=== PATIENT | male | born 1950 | race Caucasian/White ===

== ENCOUNTER → 2017-03-11 | Outpatient (CLI) | payer OTHER ==
[~2017-03-11] MED LIST: ATOR-26 PO; CYCL10TA6 PO; FLNIN/ NAE; GLY/5 PO; LSN20 PO; MELO7.5T5 PO; METF-384 PO; RANI150T2 PO; TOLT1CAP6 PO; TRAM-10 PO; ZPAK PO
--- NOTE | 2017-03-11 13:49 | DIAGNOSTIC IMAGING REPORT ---
VIDEO SWALLOW HISTORY: DYSPHAGIA TECHNIQUE: Video fluoroscopic evaluation of swallowing was performed in the AP and lateral projections by the speech pathology staff. The patient is fed nectar-thick and thin liquid barium, a barium coated wafer, and barium pudding. FLUOROSCOPY TIME: 1.8 minutes. A cine loop submitted. COMPARISON STUDY: Barium swallow 12/08/2014. FINDINGS: There is normal hyoid excursion and epiglottic deflection. No significant penetration or aspiration identified. Swallowing function is within normal limits. Questionable anterior filling defect at the proximal esophagus favors a venous plexus rather than a cervical web or lesion. This does not persist throughout the examination. IMPRESSION: 1. No aspiration identified. 2. Please see the speech pathologist report for detailed findings and recommendations. Electronically signed by: Derrick Agarwal M.D. 03/11/2017 1:47 PM Dictated Date/Time: 03/11/2017 1:42 PM
--- NOTE | 2017-03-11 15:51 | SWALLOWING EVALUATION ---
HISTORY: This 66 year old man was referred for a video swallow study at [facility] in order to rule out aspiration and identify the safest consistencies for optimal oral intake. The patient is reporting that he constantly feels as though he has to clear his throat while he eats. He feels as though his voice has become raspier due to this as well. PMH is significant for: DMII with neuropathies, hyperlipidemia, HTN, tobacco use, GERD. He has also had frequent ED visits for SOB, coughing, and dysphagia. The patient participated in a previous Barium Swallow study in 2015, that was limited due to claustrophobia, but distal esophageal narrowing was suspected. Current diet is regular. PROCEDURE: The patient was seen in the Radiology Department of [facility] for the VFSS. Cursory examination of the oral cavity revealed natural dentition in fair condition, scattered missing. Movement of the articulators was wnl. The patient was seated upright in the [facility] videofluoroscopy imaging chair and was viewed in both the Anterior-Posterior (A-P) and Lateral planes. Vocal quality was mildly raspy, low volume of speech (patient states this is normal). Vocal phonation was deferred due to positioning constraints. In the lateral plane, the patient was given the following boluses: 1 tsp. thin liquid barium x 2, single swallow thin liquid barium self-presented from a cup, serial swallows of thin liquid barium self-presented via straw, 1 tsp. nectar-thick liquid barium, 1 cup sips nectar thick liquid self-presented from the cup, 1 tsp. barium pudding, and 1 tsp. barium pudding. The patient was then repositioned into the A-P plane and given the following boluses: 1 tsp. nectar thick barium liquid and 1 tsp. barium pudding. RESULTS: Oral Stage: Lip closure was adequate as there was no anterior loss. The patient was able to maintain a cohesive liquid bolus upon command without lateral or posterior escape. Mastication and lingual motion for bolus transport were slow. There was retention lining the tongue and palate after the swallow. The initiation of the pharyngeal swallow was delayed, and triggered when the bolus head reached the valleculae. Pharyngeal Stage: Soft palate elevation was complete. Laryngeal elevation revealed complete superior movement of the thyroid cartilage with complete approximation of the arytenoids to the epiglottic base. Anterior hyoid excursion and epiglottic deflection were also complete. Laryngeal vestibular closure was complete. The pharyngeal stripping wave was present and complete. Pharyngeal contraction was also complete. The opening to the pharyngoesophageal segment (PES) was mildly reduced with partial distention and duration of the opening. Tongue base retraction revealed mildly reduced contact of the tongue base to the pharyngeal wall during the swallow. There was trace retention located in the valleculae and pyriforms after the swallow. There was no evidence of laryngeal penetration or aspiration during this study. There were only trace amounts of retention in the pharynx after the swallow was complete as well. Of note, the patient had episodes of light throat clearing throughout the entire study, but this was not due to aspiration. Esophageal stage: There was complete esophageal clearance. SUMMARY/RECOMMENDATIONS: This patient presents with normal jayden-pharyngeal swallowing mechanics. While not noted during this study, he has a PMH of esophageal dysfunction (GERD). It is suspected the patient's throat clearing may be due to GERD. The following is recommended: 1. Regular consistency diet. 2. GERD precautions. Fully upright for all p.o. intake and for 30-60 minutes after meals. HOB elevated to 30 degrees at all times to include while asleep. 3. Consider a consultation with an ENT as appropriate should the patient continue to evidence raspy vocal quality. A summary of the results and recommendations was discussed with the patient immediately following the study with verbal understanding. Thank you for referral of this patient. Please contact me at if any additional information is needed.
== END | disposition home or self-care (01) ==
LOC: C.RAD 12:55
PROVIDERS: ATTEND Internal Medicine
DX: R13.10 Dysphagia, unspecified (principal); E78.5 Hyperlipidemia, unspecified; I10 Essential (primary) hypertension; F17.210 Nicotine dependence, cigarettes, uncomplicated; R49.0 Dysphonia; E11.9 Type 2 diabetes mellitus without complications

== ENCOUNTER 2018-01-05 17:51 | Emergency (ER) | payer OTHER ==
[~2018-01-05] VITALS: Ht 172.7 cm; Wt 97.6 kg
[~2018-01-05 17:51] MED LIST changes: -ATOR-26 PO; -LSN20 PO; -MELO7.5T5 PO; -RANI150T2 PO; -TOLT1CAP6 PO
[2018-01-05 17:58] VITALS: TEMP 37; Ht 172.7 cm; Wt 97.6 kg
[2018-01-05] MEDS ORDERED: ONDANSETRON INJ 2 MG/ML 2 ML VIAL IV STA (18:05)
[2018-01-05] MEDS ORDERED: OPTIRAY 320 IV PRN (18:15)
[2018-01-05] MEDS ORDERED: MoRPHine SULFATE 4 MG/ML 1 ML CARP\\VIAL IV PRN (18:15)
--- NOTE | 2018-01-05 18:21 | EMERGENCY ROOM VISIT NOTE ---
History Report prepared by Rosalba: Thomas Cast Under the Supervision of: Dr. Uday Castro D.O. First contact with patient: 17:57 Chief Complaint: NECK PAIN Stated Complaint: NECK & L SHOULDER PAIN History of Present Illness The patient is a 67 year old male who presents to the Emergency Room with complaints of a worsening pain to the left side of his neck beginning 5 days ago. He currently rates his discomfort a 10/10 in severity. The patient states his symptoms started five days ago with a stiff neck. He reports his symptoms radiate from his left ear to his left shoulder and across his chest to his right shoulder. The patient notes he has had a history of these symptoms before , and heat typically alleviates his discomfort. He states he tried to use heat and propping himself up, and this time it did not work. The patient reports he sleeps on his side with his left arm under the pillow. He notes he woke up and tried to pivot on his left elbow, and this movement increased his pain. The patient states he has a history of carpal tunnel and a snapped finger in both his arms, and he has surgery in three days for his right side. He reports his PCP wanted to evaluate him, but he was not able to get a ride into the office. The patient notes he is lightheaded from his pain. He denies new weakness in his arms or legs. Source of History: patient Onset: 5 days ago Position: neck (left side) Symptom Intensity: 10/10 Timing: worsening Modifying Factors (Worsening): movement Associated Symptoms: No weakness Note: Associated symptoms: bilateral shoulder pain, lightheaded secondary to pain Review of Systems See HPI for pertinent positives & negatives. A total of 10 systems reviewed and were otherwise negative. Past Medical & Surgical Medical Problems: (1) Diab W Oth Spec Manifest, Type Ii Or Unspec Type, Not Uncntr (2) History Of Tobacco Use (3) Hyperlipemia (4) Hypertension Nos (5) Idio Periph Neurpthy Nos (6) Lower Leg Injury Nos (7) Other Chronic Pain Family History Patient reports no known family medical history. Social History Smoking Status: Former Smoker Marital Status: Occupation Status: disabled Current/Historical Medications Scheduled Atorvastatin (Lipitor), 80 MG PO DAILY Baclofen (Baclofen), 10 MG PO BID Diltiazem Hcl (Diltiazem Cd), 240 MG PO DAILY Gabapentin (Gabapentin), 100 MG PO TID Glipizide (Glipizide), 10 MG PO BID Ketoconazole (Ketoconazole), 1 APPLN TOP Q2D Lisinopril (Lisinopril), 20 MG PO DAILY Magnesium Oxide (Mag-Ox), 400 MG PO AMPM Meloxicam (Mobic), 7.5 MG PO DAILY Metformin Hcl (Glucophage), 1,000 MG PO on hold Omeprazole (Prilosec), 40 MG PO BID Ranitidine HCl (Ranitidine HCl), 150 MG PO BID Sitagliptin (Januvia), 100 MG PO DAILY Tolterodine Tartrate (Tolterodine Tartrate ER), 2 MG PO DAILY Scheduled PRN Fluticasone Propionate (Fluticasone Propionate), 2 SPRAYS MADELAINE DAILY PRN for Nasal Congestion Allergies Coded Allergies: Penicillins (Verified Allergy, Unknown, 03/11/12) Physical Exam Vital Signs Date Time Temp Pulse Resp B/P (MAP) Pulse Ox O2 Delivery O2 Flow Rate FiO2 01/05/18 22:18 87 18 114/62 95 01/05/18 21:30 90 18 114/62 95 Room Air 01/05/18 19:22 89 20 162/83 96 01/05/18 18:26 81 01/05/18 17:58 37.0 87 20 139/86 95 Room Air Physical Exam GENERAL: Patient is awake, alert, and in no acute distress. Patient is resting comfortably and showing no signs of anxiety EYES: The conjunctivae are clear. The pupils are round and reactive. EARS, NOSE, MOUTH AND THROAT: The nose is without any evidence of any deformity. Mucous membranes are moist tongue is midline NECK: Pt appeared to be restricted in his ROM. He was tender in the posterior aspect of the c-spine as well as the left SCM area. No bruit noted to auscultation bilaterally. RESPIRATORY: Normal respiratory effort is noted there is no evidence of wheezing rhonchi or rales CARDIOVASCULAR: Regular rate and rhythm noted there no murmurs rubs or gallops normal S1 normal S2 GASTROINTESTINAL: The abdomen is soft. Bowel sounds are present in all quadrants. Abdomen is nontender BACK: No midline tenderness or or step-off noted range of motion in flexion extension as well as rotation no signs of muscle spasm noted MUSCULOSKELETAL/EXTREMITIES: There is no evidence of gross deformity full range of motion is noted in the hips and shoulders SKIN: There is no obvious evidence of any rash. There are no petechiae, pallor or cyanosis noted. NEUROLOGIC: Patient is awake alert and oriented x3 strength. Moves all extremities well. Medical Decision & Procedures ER Provider Diagnostic Interpretation: Radiology results as stated below per my review and radiologist interpretation: CHEST ONE VIEW PORTABLE CLINICAL HISTORY: Pain, radiating to the abdomen. COMPARISON STUDY: November 08, 2014 FINDINGS: The cardiac and mediastinal contours are normal. There is no evidence of focal pulmonary consolidation. There is no evidence of failure. No pleural effusions are visualized.[ There is no free intraperitoneal air IMPRESSION: No active disease in the chest. Electronically signed by: Nicholas Holliday M.D. 01/05/2018 6:22 PM Dictated Date/Time: 01/05/2018 6:[address] NECK ANGIO WITH CONTRAST CLINICAL HISTORY: Left-sided neck pain. Possible dissection. COMPARISON STUDY: No previous studies for comparison. TECHNIQUE: CT angiography was performed from the aortic arch to the skull base. MIP imaging was performed. The patient was scanned in a dynamic helical fashion during intravenous administration of 117 cc of Optiray 320. A dose lowering technique was utilized adhering to the principles of ALARA. CT DOSE: 505.59 mGy.cm Technique: CT angiogram of the carotid and vertebral arteries was obtained using intravenous contrast and 3-D reconstruction. NASCET criteria was utilized. Findings: There are bilateral subcentimeter thyroid nodules. The right carotid revealed no evidence of aneurysm and no evidence of dissection. There is no evidence of hemodynamic significant stenosis. There are moderate atheromatous changes present. The left carotid revealed no evidence of hemodynamic significant stenosis. There is no evidence of aneurysm. There is no evidence of dissection. There are moderate atheromatous changes present. There is no evidence of hemodynamically significant vertebral stenosis. There is no evidence of vertebral dissection. IMPRESSION: No evidence of hemodynamically significant carotid or vertebral artery stenosis. No evidence of dissection. Electronically signed by: Nicholas Holliday M.D. 01/05/2018 8:52 PM Dictated Date/Time: 01/05/2018 8:48 PM Laboratory Results 01/05/18 19:15 Red Blood Count 4.92, Mean Corpuscular Volume 89.0, Mean Corpuscular Hemoglobin 30.7, Mean Corpuscular Hemoglobin Concent 34.5, Mean Platelet Volume 10.4, Neutrophils (%) (Auto) 69.9, Lymphocytes (%) (Auto) 17.4, Monocytes (%) (Auto) 10.0, Eosinophils (%) (Auto) 2.1, Basophils (%) (Auto) 0.2, Neutrophils # (Auto ) 10.88, Lymphocytes # (Auto) 2.70, Monocytes # (Auto) 1.56, Eosinophils # (Auto ) 0.33, Basophils # (Auto) 0.03 01/05/18 19:15 Test 01/05/18 19:15 01/05/18 19:22 White Blood Count 15.56 K/uL (4.8-10.8) Red Blood Count 4.92 M/uL (4.7-6.1) Hemoglobin 15.1 g/dL (14.0-18.0) Hematocrit 43.8 % (42-52) Mean Corpuscular Volume 89.0 fL (80-100) Mean Corpuscular Hemoglobin 30.7 pg (25-34) Mean Corpuscular Hemoglobin Concent 34.5 g/dl (32-36) Platelet Count 312 K/uL (130-400) Mean Platelet Volume 10.4 fL (7.4-10.4) Neutrophils (%) (Auto) 69.9 % Lymphocytes (%) (Auto) 17.4 % Monocytes (%) (Auto) 10.0 % Eosinophils (%) (Auto) 2.1 % Basophils (%) (Auto) 0.2 % Neutrophils # (Auto) 10.88 K/uL (1.4-6.5) Lymphocytes # (Auto) 2.70 K/uL (1.2-3.4) Monocytes # (Auto) 1.56 K/uL (0.11-0.59) Eosinophils # (Auto) 0.33 K/uL (0-0.5) Basophils # (Auto) 0.03 K/uL (0-0.2) RDW Standard Deviation 43.5 fL (36.4-46.3) RDW Coefficient of Variation 13.3 % (11.5-14.5) Immature Granulocyte % (Auto) 0.4 % Immature Granulocyte # (Auto) 0.06 K/uL (0.00-0.02) Erythrocyte Sedimentation Rate 32 mm/hr (0-14) Prothrombin Time 10.3 SECONDS (9.0-12.0) Prothromb Time International Ratio 1.0 (0.9-1.1) Activated Partial Thromboplast Time 24.5 SECONDS (21.0-31.0) Partial Thromboplastin Ratio 0.9 Est Creatinine Clear Calc Drug Dose 101.7 ml/min Estimated GFR () 107.6 Estimated GFR (Non- 92.8 BUN/Creatinine Ratio 14.6 (10-20) Calcium Level 9.4 mg/dl (8.5-10.1) Total Bilirubin 0.6 mg/dl (0.2-1) Direct Bilirubin < 0.1 mg/dl (0-0.2) Aspartate Amino Transf (AST/SGOT) 15 U/L (15-37) Alanine Aminotransferase (ALT/SGPT) 24 U/L (12-78) Alkaline Phosphatase 115 U/L (45-117) Troponin I < 0.015 ng/ml (0-0.045) C-Reactive Protein 1.75 mg/dl (0-0.29) Total Protein 7.3 gm/dl (6.4-8.2) Albumin 3.7 gm/dl (3.4-5.0) Lipase 116 U/L (73-393) Bedside Hemoglobin 13.9 g/dl (14.0-18.0) Bedside Hematocrit 41 % (42-52) Bedside Sodium 139 mEq/L (135-144) Bedside Potassium 4.0 mEq/L (3.3-5.0) Bedside Chloride 100 mEq/L (101-112) Bedside Total CO2 25 mEq/l (24-31) Anion Gap 19.0 mmol/L (16-25) Bedside Blood Urea Nitrogen 14 mg/dl (7-18) Bedside Creatinine 0.6 mg/dl (0.6-1.3) Bedside Glucose (other) 135 mg/dl (70-99) Bedside Ionized Calcium (Teri) 1.19 mmol/l (1.12-1.32) Laboratory results per my review. Medications Administered Medications (Trade) Dose Ordered Sig/Benjamin Route Start Time Stop Time Status Last Admin Dose Admin Ondansetron HCl (Zofran Inj) 4 mg NOW STAT IV 01/05/18 18:05 01/05/18 18:08 DC 01/05/18 19:43 4 MG Ketorolac Tromethamine (Toradol Inj) 30 mg NOW STAT IV 01/05/18 19:45 01/05/18 19:47 DC 01/05/18 20:15 30 MG Oxycodone HCl (Roxicodone Immediate Rel 5MG Home Pack) 1 homepack UD ONCE PO 01/05/18 22:00 01/05/18 22:01 DC 01/05/18 22:13 1 HOMEPACK ECG Per My Interpretation Indication: back/shoulder pain Rate (beats per minute): 84 Rhythm: normal sinus Findings: no ectopy, other (No ST segment abnormalities) Comparison ECG Date: 11/08/14 Change: no significant change ED Course 1757: The patient was evaluated in room C07. A complete history and physical examination were performed. 1804: Ordered Ondansetron HCl 4 mg IV 1814: Ordered Morphine Sulfate 4mg IV 1944: Ordered Ketorolac Tromethamine 30 mg IV 2150: Upon reevaluation, the patient is resting comfortably. I discussed the results and treatment plan with him. He verbalized agreement of the treatment plan. The patient was discharged home. 2199: Ordered Oxycodone HCl 1 homepack PO Medical Decision Differential diagnosis: Etiologies such as cardiac ischemia, aortic dissection, pulmonary embolism, pneumonia, pneumothorax, musculoskeletal, infections, pericarditis, myocarditis , esophageal rupture, gastrointestinal, as well as others were entertained. Nursing notes reviewed. The patient is a 67-year-old male who presented to the emergency department for an evaluation of left-sided neck pain. The patient has had neck problems in the past but this appears to be a new problem over the last few days. He did not have a fever but his white blood cell count was elevated. For this reason radiographic studies were obtained to rule out avascular or a soft tissue cause for his pain. The patient was treated with pain medication. I discussed the patient's laboratory and radiographic studies with him. At this time no definite cause for his pain could be found. I do not feel this is a definite infectious cause even though he has a white blood cell count that is elevated. The patient told me he has had elevated white blood cell counts in the past without a definite cause. He was encouraged to rest and avoid any strenuous activity. I also encouraged him to continue all medications as prescribed and follow-up with his family doctor within the next few days for reevaluation. I also encouraged him to return to the emergency department immediately if he develops signs of infection such as fever or swelling or if the need arises. Head Trauma GCS Score: 15 Medication Reconcilliation Current Medication List: was personally reviewed by me Blood Pressure Screening Patient's blood pressure: Normal blood pressure Blood pressure disposition: Did not require urgent referral Impression Primary Impression: Neck pain Scribe Attestation The scribe's documentation has been prepared under my direction and personally reviewed by me in its entirety. I confirm that the note above accurately reflects all work, treatment, procedures, and medical decision making performed by me. Departure Information Dispostion Home / Self-Care Referrals Abdiaziz Larkin D.O. (PCP) Forms HOME CARE DOCUMENTATION FORM, IMPORTANT VISIT INFORMATION, WORK / SCHOOL INSTRUCTIONS Patient Instructions ED Neck Pain No Trauma, My [facility] Additional Instructions Continue all medications as prescribed. Continue using Motrin and Tylenol as directed for pain. Follow-up with your family doctor within the next few days for reevaluation. Return the emergency department immediately if symptoms change worsen or the need arises.
[2018-01-05 19:34] LABS: BASO % 0.2 %; BASO ABS # 0.03 K/uL (0-0.2); EOS % 2.1 %; EOS ABS # 0.33 K/uL (0-0.5); HEMATOCRIT 43.8 % (42-52); HEMOGLOBIN 15.1 g/dL (14.0-18.0); IG# 0.06 K/uL (0.00-0.02); LYMPH % 17.4 %; MEAN CORPUSCULAR HEMOGLOBIN 30.7 pg (25-34); MEAN CORPUSCULAR HGB CONC 34.5 g/dl (32-36); MEAN PLATELET VOLUME 10.4 fL (7.4-10.4); MONO ABS # 1.56 K/uL (0.11-0.59); NEUT % 69.9 %; NEUT ABS # 10.88 K/uL (1.4-6.5); PLATELET COUNT 312 K/uL (130-400); RED CELL DISTRIBUTION WIDTH CV 13.3 % (11.5-14.5); RED CELL DISTRIBUTION WIDTH SD 43.5 fL (36.4-46.3); WHITE BLOOD COUNT 15.56 K/uL (4.8-10.8)
[2018-01-05 19:43] LABS: PTT PATIENT 24.5 SECONDS (21.0-31.0)
[2018-01-05] MEDS ORDERED: KETOROLAC TROMETHAMINE 30 MG/ML VIAL IV STA (19:45)
[2018-01-05 20:00] LABS: ALBUMIN 3.7 gm/dl (3.4-5.0); ALT/SGPT 24 U/L (12-78); BLOOD UREA NITROGEN 12 mg/dl (7-18); CALCIUM 9.4 mg/dl (8.5-10.1); CARBON DIOXIDE 27 mmol/L (21-32); CREATININE 0.82 mg/dl (0.60-1.40); GLUCOSE 124 mg/dl (70-99); LIPASE 116 U/L (73-393); POTASSIUM 4.2 mmol/L (3.5-5.1); SODIUM 137 mmol/L (136-145)
[2018-01-05 20:05] LABS: ALKALINE PHOSPHATASE 115 U/L (45-117); AST/SGOT 15 U/L (15-37); TOTAL PROTEIN 7.3 gm/dl (6.4-8.2)
[2018-01-05 20:48] LABS: ISTAT CREATININE 0.6 mg/dl (0.6-1.3); ISTAT IONIZED CALCIUM 1.19 mmol/l (1.12-1.32)
--- NOTE | 2018-01-05 20:53 | DIAGNOSTIC IMAGING REPORT ---
CT NECK ANGIO WITH CONTRAST CLINICAL HISTORY: Left-sided neck pain. Possible dissection. COMPARISON STUDY: No previous studies for comparison. TECHNIQUE: CT angiography was performed from the aortic arch to the skull base. MIP imaging was performed. The patient was scanned in a dynamic helical fashion during intravenous administration of 117 cc of Optiray 320. A dose lowering technique was utilized adhering to the principles of ALARA. CT DOSE: 505.59 mGy.cm Technique: CT angiogram of the carotid and vertebral arteries was obtained using intravenous contrast and 3-D reconstruction. NASCET criteria was utilized. Findings: There are bilateral subcentimeter thyroid nodules. The right carotid revealed no evidence of aneurysm and no evidence of dissection. There is no evidence of hemodynamic significant stenosis. There are moderate atheromatous changes present. The left carotid revealed no evidence of hemodynamic significant stenosis. There is no evidence of aneurysm. There is no evidence of dissection. There are moderate atheromatous changes present. There is no evidence of hemodynamically significant vertebral stenosis. There is no evidence of vertebral dissection. IMPRESSION: No evidence of hemodynamically significant carotid or vertebral artery stenosis. No evidence of dissection. Electronically signed by: Nicholas Holliday M.D. 01/05/2018 8:52 PM Dictated Date/Time: 01/05/2018 8:48 PM
[2018-01-05] MEDS ORDERED: LRS10 PO (21:07)
[2018-01-05] MEDS ORDERED: NRN100 PO (21:07)
[2018-01-05] MEDS ORDERED: SITA1TAB27 PO (21:07)
[2018-01-05] MEDS ORDERED: GLIP10TA10 PO (21:07)
[2018-01-05] MEDS ORDERED: OMEP40CA41 PO (21:07)
[2018-01-05] MEDS ORDERED: MAGN400T6 PO (21:07)
[2018-01-05] MEDS ORDERED: DLTCD/240 PO (21:12)
[2018-01-05] MEDS ORDERED: NZRSHM TOP (21:12)
[2018-01-05] MEDS ORDERED: OXYCODONE IR HOME PACK PO ONE (22:00)
[2018-01-05 22:18] VITALS: BP 114/62; PULSE 87; O2SAT 95
[2018-01-05] MEDS ORDERED: RANI150T2 PO (22:34)
[2018-01-05] MEDS ORDERED: TOLT1CAP6 PO (22:34)
[2018-01-05] MEDS ORDERED: LSN20 PO (22:34)
[2018-01-05] MEDS ORDERED: ATOR-26 PO (22:34)
[2018-01-05] MEDS ORDERED: MELO7.5T5 PO (22:34)
== END 2018-01-05 22:19 | disposition home or self-care (01) ==
LOC: EDBD 17:51 → C.EDC 17:52
DX: M54.12 Radiculopathy, cervical region (principal); D72.829 Elevated white blood cell count, unspecified; E11.9 Type 2 diabetes mellitus without complications; E78.5 Hyperlipidemia, unspecified; I10 Essential (primary) hypertension; Z79.84 Long term (current) use of oral hypoglycemic drugs; Z87.891 Personal history of nicotine dependence; Z88.0 Allergy status to penicillin